=== PATIENT | male | born 1980 | race Caucasian/White ===

== ENCOUNTER 2017-03-04 16:49 | Inpatient (IN) | payer SELFPAY ==
[2017-03-04] MEDS ORDERED: ACETAMINOPHEN 325 MG TABLET PO ONE (17:11)
[2017-03-04] MEDS ORDERED: NORMAL SALINE 1000 ML 2,100 ML IV ONE (17:11)
[2017-03-04] MEDS ORDERED: VANCOMYCIN HCL INJ 1000 MG VIAL IV ONE (17:14)
[2017-03-04] MEDS ORDERED: PIPERACILLIN/TAZOBACTAM 3.375 GM VIAL IV ONE (17:15)
--- NOTE | 2017-03-04 17:18 | ER Document Report ---
ED Medical Screen (RME) - General Chief Complaint: Arm Problem Stated Complaint: RIGHT ARM PAIN, SWELLING, FEVER Time Seen by Provider: 03/04/17 17:11 Mode of Arrival: Ambulatory Information source: Patient Notes: 36-year-old male presents to ED for complaint of red swollen hot right arm. He states she has been clean for about a month and 3 days ago he shot up heroin. He has a red swollen hot area 8 cm above 12 cm below the elbow almost completely circumferential. He states that a couple hours after he shot up his arm was sore. The next day he had increased pain yesterday his pain was much worse and he started with swelling and redness. He states he took ibuprofen this morning he states he was less swelling but as the day has progressed the swelling has gotten much worse the redness has gotten much worse as well as the pain. His pulse is 138 with a temp of 100.2 after drinking water. The female visited with him states that his pulse was 140 last [address] Consult[address] to Dr. Kelly and he agreed that the patient needs a septic workup as well as IV vancomycin and Zosyn. I have greeted and performed a rapid initial assessment of this patient. A comprehensive ED assessment and evaluation of the patient, analysis of test results and completion of medical decision making process will be conducted by an additional ED providers. TRAVEL OUTSIDE OF THE [place] IN LAST 30 DAYS: No - Related Data Allergies/Adverse Reactions: No Known Allergies Allergy (Verified 03/04/17 16:55) Past Medical History - Social History Drug Abuse: Heroin Renal/ Medical History: Denies: Hx Peritoneal Dialysis Physical Exam - Vital signs Vitals: Temp Pulse Resp BP Pulse Ox 100.0 F 132 H 18 139/82 H 99 03/04/17 16:55 03/04/17 16:55 03/04/17 16:55 03/04/17 16:55 03/04/17 16:55 Course - Vital Signs Vital signs: Temp Pulse Resp BP Pulse Ox 100.0 F 132 H 18 139/82 H 99 03/04/17 16:55 03/04/17 16:55 03/04/17 16:55 03/04/17 16:55 03/04/17 16:55
--- NOTE | 2017-03-04 17:51 | ER Document Report ---
ED Extremity Problem, Upper - General Chief Complaint: Arm Problem Stated Complaint: RIGHT ARM PAIN, SWELLING, FEVER Time Seen by Provider: 03/04/17 17:11 Mode of Arrival: Ambulatory Notes: This is a 36-year-old male. History of IV drug abuse. Shooting in his right arm. Now right arm is red and infected. Patient has a fever. Heart is racing. Feels horrible. NO Known history of HIV or hepatitis. TRAVEL OUTSIDE OF THE [place] IN LAST 30 DAYS: No - HPI Patient complains to provider of: Pain, Swelling, Right, Forearm Onset: Yesterday Where: Home Quality of pain: Burning, Fullness, Throbbing Severity of pain: Moderate Pain Level: 2 Context: Other - Heroin abuse Associated symptoms: Chills, Fever Exacerbated by: Movement Relieved by: Positioning - Related Data Allergies/Adverse Reactions: No Known Allergies Allergy (Verified 03/04/17 16:55) Past Medical History - General Information source: Patient - Social History Smoking Status: Current Every Day Smoker Drug Abuse: Heroin Family History: Reviewed & Not Pertinent Patient has suicidal ideation: No Patient has homicidal ideation: No Renal/ Medical History: Denies: Hx Peritoneal Dialysis Review of Systems - Review of Systems Constitutional: No symptoms reported, Chills, Fever EENT: No symptoms reported Cardiovascular: No symptoms reported, Heart racing Respiratory: No symptoms reported Gastrointestinal: No symptoms reported Genitourinary: No symptoms reported Male Genitourinary: No symptoms reported Musculoskeletal: No symptoms reported, See HPI Skin: No symptoms reported Hematologic/Lymphatic: No symptoms reported, See HPI Neurological/Psychological: No symptoms reported Physical Exam - Vital signs Vitals: Temp Pulse Resp BP Pulse Ox 100.0 F 132 H 18 139/82 H 99 03/04/17 16:55 03/04/17 16:55 03/04/17 16:55 03/04/17 16:55 03/04/17 16:55 Interpretation: Normal - General General appearance: Appears well, Alert - HEENT Head: Normocephalic, Atraumatic Eyes: Normal Pupils: PERRL - Respiratory Respiratory status: No respiratory distress Chest status: Nontender Breath sounds: Normal Chest palpation: Normal - Cardiovascular Rhythm: Tachycardia Heart sounds: Normal auscultation Murmur: No - Abdominal Inspection: Normal Distension: No distension Bowel sounds: Normal Tenderness: Nontender Organomegaly: No organomegaly - Back Back: Normal, Nontender - Extremities General upper extremity: Other - The right upper extremity demonstrates large amount of erythema and swelling with cellulitis present around needle perkins on the forearm on the right. Cellulitic streaking General lower extremity: Normal inspection, Nontender, Normal color, Normal ROM , Normal temperature, Normal weight bearing. No: Mninie's sign - Neurological Neuro grossly intact: Yes Cognition: Normal Orientation: AAOx4 [place] Coma Scale Eye Opening: Spontaneous [place] Coma Scale Verbal: Oriented [place] Coma Scale Motor: Obeys Commands [place] Coma Scale Total: 15 Speech: Normal Motor strength normal: LUE, RUE, LLE, RLE Sensory: Normal - Psychological Associated symptoms: Normal affect, Normal mood - Skin Skin Temperature: Warm Skin Moisture: Dry Skin Color: Normal Course - Re-evaluation Re-evalutation: 03/04/17 18:46 he is tachycardic, has obvious cellulitis. IV drug abuser so high risk for infection. Started on Vanco and Zosyn. IV fluids. Patient will need to be admitted. 03/04/17 19:08 Consulted with hospitalist, Dr. Reddy will admit at this time. He requests ultrasound of the extremity to rule out DVT and abscess. The studies have been ordered. Dr. Reddy to follow-up on the results as an inpatient. - Vital Signs Vital signs: Temp Pulse Resp BP Pulse Ox 100.0 F 132 H 18 139/82 H 99 03/04/17 16:55 03/04/17 16:55 03/04/17 16:55 03/04/17 16:55 03/04/17 16:55 - Laboratory Result Diagrams: 03/04/17 18:14 03/04/17 18:14 Laboratory results interpreted by me: 03/04/17 03/04/17 03/04/17 18:14 18:14 18:14 WBC 15.5 H RDW 14.4 H Plt Count 102 L Seg Neutrophils % 82.9 H Lymphocytes % 8.3 L Absolute Neutrophils 12.9 H VBG pH 7.48 H VBG pCO2 31.0 L Sodium 136.9 L Potassium 3.4 L Carbon Dioxide 20 L Glucose 112 H Direct Bilirubin 0.5 H - EKG Interpretation by Me EKG shows normal: [place], Intervals, QRS Complexes, ST-T Waves Rate: Tachycardia Discharge - Discharge Clinical Impression: Cellulitis of upper extremity Qualifiers: Laterality: right Qualified Code(s): L03.113 - Cellulitis of right upper limb Disposition: ADMITTED INPATIENT Admitting Provider: Hospitalist Unit Admitted: Medical Floor - Dr. Reddy
--- NOTE | 2017-03-04 17:56 | RADIOLOGY REPORT (SQ) ---
EXAM DESCRIPTION: CHEST PA/LAT COMPLETED DATE/TIME: 03/04/2017 5:48 pm REASON FOR STUDY: sepsis COMPARISON: None. EXAM PARAMETERS: NUMBER OF VIEWS: two views TECHNIQUE: Digital Frontal and Lateral radiographic views of the chest acquired. RADIATION DOSE: NA LIMITATIONS: none FINDINGS: LUNGS AND PLEURA: No opacities, masses or pneumothorax. No pleural effusion. MEDIASTINUM AND HILAR STRUCTURES: No masses or contour abnormalities. HEART AND VASCULAR STRUCTURES: Heart normal size. No evidence for failure. BONES: No acute findings. HARDWARE: None in the chest. OTHER: No other significant finding. IMPRESSION: NO SIGNIFICANT RADIOGRAPHIC FINDING IN THE CHEST. TECHNICAL DOCUMENTATION: JOB ID: [id number] [employer]- All Rights Reserved
[2017-03-04 18:41] LABS: VENOUS BLOOD BASE EXCESS -0.2 mmol/L; VENOUS BLOOD HCO3 22.4 mmol/L (20-32); VENOUS BLOOD PH 7.48 (7.30-7.42)
[2017-03-04 18:44] LABS: PROTHROMBIN TIME 13.6 SEC (11.4-15.4)
[2017-03-04 18:46] LABS: ABSOLUTE LYMPHOCYTES (AUTO) 1.3 10^3/uL (0.5-4.7); ABSOLUTE MONOCYTES (AUTO) 1.3 10^3/uL (0.1-1.4); ABSOLUTE NEUT (AUTO) 12.9 10^3/uL (1.7-8.2); BASOPHILS % (AUTO) 0.1 % (0-2); EOSINOPHILS % (AUTO) 0.1 % (0-6); HEMATOCRIT 38.6 % (37.9-51.0); HEMOGLOBIN 13.7 g/dL (13.5-17.0); HGB HCT DIFFERENCE 2.5; LYMPHOCYTES % (AUTO) 8.3 % (13-45); MEAN CORPUSCULAR HEMOGLOBIN 30.6 pg (27.0-33.4); MEAN CORPUSCULAR HGB CONC 35.5 g/dL (32.0-36.0); MEAN CORPUSCULAR VOLUME 86 fl (80-97); MONOCYTES % (AUTO) 8.6 % (3-13); RED BLOOD COUNT 4.47 10^6/uL (4.35-5.55); RED CELL DISTRIBUTION WIDTH 14.4 % (11.5-14.0); SEGMENTED NEUTROPHILS % (AUTO) 82.9 % (42-78); WHITE BLOOD COUNT 15.5 10^3/uL (4.0-10.5)
[2017-03-04 18:59] LABS: ALANINE AMINOTRANSFERASE 69 U/L (21-72); ALBUMIN 4.1 g/dL (3.5-5.0); ALKALINE PHOSPHATASE 87 U/L (38-126); ANION GAP 14 (5-19); ASPARTATE AMINO TRANSFERASE 45 U/L (17-59); BILIRUBIN,DIRECT 0.5 mg/dL (0.0-0.4); BLOOD UREA NITROGEN 12 mg/dL (7-20); CALCIUM 9.3 mg/dL (8.4-10.2); CARBON DIOXIDE 20 mmol/L (22-30); CHLORIDE 103 mmol/L (98-107); CREATININE RESULT 0.78 mg/dL (0.52-1.25); GLUCOSE 112 mg/dL (75-110); POTASSIUM 3.4 mmol/L (3.6-5.0); SODIUM 136.9 mmol/L (137-145); TOTAL PROTEIN 7.3 g/dL (6.3-8.2)
--- NOTE | 2017-03-04 19:43 | EKG REPORT ---
SEVERITY:- OTHERWISE NORMAL ECG - SINUS TACHYCARDIA ST ELEV, PROBABLE NORMAL EARLY REPOL PATTERN : Confirmed by: Jared Burger MD 04-Mar-2017 19:42:25
[2017-03-04] MEDS ORDERED: CALCIUM CARBONATE 500 MG TAB.CHEW PO PRN (19:45)
[2017-03-04] MEDS ORDERED: IPRATROPIUM/ALBUTEROL 0.5-2.5 MG/3 ML AMPUL NEB PRN (19:46)
[2017-03-04] MEDS ORDERED: MAG HYDROX/AL HYDROX/SIMETH SUSP 30 ML UDCUP PO PRN (19:46)
[2017-03-04] MEDS ORDERED: VANCOMYCIN HCL 0 MG in DEXTROSE 5%-WATER 250 ML IV NR (20:00)
--- NOTE | 2017-03-04 20:54 | RADIOLOGY REPORT (SQ) ---
EXAM DESCRIPTION: VENOUS UNILATERAL UPPER COMPLETED DATE/TIME: 03/04/2017 8:39 pm REASON FOR STUDY: Swelling right upper extremity COMPARISON: None. TECHNIQUE: Dynamic and static mijares scale and color images acquired of the right arm venous system. S elected spectral images acquired with additional compression and augmentation maneuvers. The contrala teral subclavian vein and internal jugular vein were also imaged. Images stored on PACS. LIMITATIONS: None. FINDINGS: INTERNAL JUGULAR VEIN: Normal phasicity, compression, augmentation. No visualized echogeni c material on mijares scale. No defects on color images. Comparison opposite side normal. SUBCLAVIAN VEIN: Normal compression, augmentation. No visualized echogenic material on mijares scale. No defects on color images. AXILLARY VEIN: Normal compression, augmentation. No visualized echogenic material on mijares scale. No d efects on color images. BRACHIAL VEIN: Normal compression, augmentation. No visualized echogenic material on mijares scale. No d efects on color images. BASILIC VEIN: Normal compression, augmentation. No visualized echogenic material on mijares scale. No de fects on color images. CEPHALIC VEIN: Normal compression, augmentation. No visualized echogenic material on mijares scale. No d efects on color images. OTHER: No other significant finding. CONTRALATERAL SUBCLAVIAN VEIN AND INTERNAL JUGULAR VEIN: Normal phasicity, compression and augmentation. No visualized echogenic material on mijares scale. No de fects on color images. IMPRESSION: NO EVIDENCE DVT OR SVT IN THE RIGHT ARM. TECHNICAL DOCUMENTATION: JOB ID: [id number] [employer]- All Rights Reserved
--- NOTE | 2017-03-04 21:32 | RADIOLOGY REPORT (SQ) ---
EXAM DESCRIPTION: U/S EXTREMITY NONVASCULAR LTD COMPLETED DATE/TIME: 03/04/2017 9:10 pm REASON FOR STUDY: Possible abscess right upper extremity COMPARISON: None. TECHNIQUE: Dynamic and static grayscale images acquired of the localized site of clinical concern an d recorded on PACS. Additional selected color Doppler and spectral images recorded. SITE OF CONCERN: Right medial forearm LIMITATIONS: None. FINDINGS: SKIN AND SUBCUTANEOUS TISSUES: No masses. No fluid collections. Soft tissue edema is iden tified. No foreign bodies. DEEP SOFT TISSUES/MUSCLES: No masses. No fluid collections. No edema. VASCULAR: No increased or decreased vascularity. No occlusions. OTHER: No other significant finding. IMPRESSION: Soft tissue edema is identified without a discrete mass or fluid collection being identi fied. TECHNICAL DOCUMENTATION: JOB ID: [id number] [employer]- All Rights Reserved
[2017-03-04] MEDS: HEPARIN SOD (PORCINE) 5,000 UNIT/ML 1 ML SYRINGE SUBCUT SCH (22:40)
[2017-03-04] MEDS: NORMAL SALINE 1000 ML 1,000 ML IV SCH (22:45)
[2017-03-04] MEDS: ACETAMINOPHEN 325 MG TABLET PO PRN (22:45)
[2017-03-05] MEDS: PIPERACILLIN SODIUM/TAZOBACTAM 4.5 GM in NORMAL SALINE 100 ML IV SCH ×4 (00:40→17:03)
[2017-03-05] MEDS: KETOROLAC TROMETHAMINE INJ/PF 30 MG/1 ML SDV IV PRN ×3 (01:25→22:14)
[2017-03-05] MEDS: VANCOMYCIN HCL 1,000 MG in DEXTROSE 5%-WATER 250 ML IV SCH ×3 (01:25→17:45)
[2017-03-05] MEDS: ACETAMINOPHEN 325 MG TABLET PO PRN ×3 (03:57→20:10)
[2017-03-05] MEDS: NORMAL SALINE 1000 ML 1,000 ML IV SCH (03:59)
[2017-03-05] MEDS ORDERED: POTASSIUM CHLORIDE 10 MEQ TABLET.SA PO ONE (04:54)
--- NOTE | 2017-03-05 05:09 | PDOC H&P ---
History of Present Illness Admission Date/PCP: 03/04/17 19:46 Patient complains of: Right forearm pain History of Present Illness: LORIN MURPHY is a 36 year old male with past medical history of intermittent IV drug use and tobacco who had been in his usual state of health until approximately 3 days ago stating he missed a vein while attempting to inject heroin resulting in pain and swelling to his right forearm. He has also developed circumferential erythema, myalgias and fever prompting him to seek evaluation emergency room where he is found to have sepsis. He started on IV vancomycin, Zosyn and referred to the hospitalist for admission. Patient admits previous episode in the left arm which resulted in an non-MRSA abscess requiring debridement and hospitalization in 2012. Past Medical History Cardiac Medical History: Reports: None Pulmonary Medical History: Reports: Bronchitis EENT Medical History: Reports: None Neurological Medical History: Reports: None Endocrine Medical History: Reports: None Renal/ Medical History: Reports: None Malignancy Medical History: Reports: None GI Medical History: Reports: None Musculoskeltal Medical History: Reports: None Skin Medical History: Reports: None Psychiatric Medical History: Reports: Substance Abuse, Tobacco Dependency Denies: Depression Traumatic Medical History: Reports: None Hematology: Reports: None Infectious Medical History: Reports: None Past Surgical History Past Surgical History: Reports: None Social History Information Source: Patient Lives with: Spouse/Significant other Smoking Status: Current Every Day Smoker Cigarettes Packs Per Day: 1 Number of Years Smokin Last Time Smoked: today Frequency of Alcohol Use: Social Last Alcohol Use: 03/04/17 - Denies DTs Hx Recreational Drug Use: Yes Drugs: Heroin Hx Prescription Drug Abuse: No - Advance Directive Resuscitation Status: Full Code Family History Family History: COPD Parental Family History Reviewed: Yes Children Family History Reviewed: Yes Sibling(s) Family History Reviewed.: Yes Medication/Allergy Home Medications: No Home Medications 03/04/17 Allergies/Adverse Reactions: No Known Allergies Allergy (Verified 03/04/17 16:55) Review of Systems Constitutional: ABSENT: chills, fever(s), headache(s), weight gain, weight loss Eyes: ABSENT: visual disturbances Ears: ABSENT: hearing changes Cardiovascular: ABSENT: chest pain, dyspnea on exertion, edema, orthropnea, palpitations Respiratory: ABSENT: cough, hemoptysis Gastrointestinal: ABSENT: abdominal pain, constipation, diarrhea, hematemesis, hematochezia, nausea, vomiting Genitourinary: ABSENT: dysuria, hematuria Musculoskeletal: ABSENT: joint swelling Integumentary: ABSENT: rash, wounds Neurological: ABSENT: abnormal gait, abnormal speech, confusion, dizziness, focal weakness, syncope Psychiatric: ABSENT: anxiety, depression, homidical ideation, suicidal ideation Endocrine: ABSENT: cold intolerance, heat intolerance, polydipsia, polyuria Hematologic/Lymphatic: ABSENT: easy bleeding, easy bruising Physical Exam Vital Signs: Temp Pulse Resp BP Pulse Ox 98.3 F 84 20 120/60 100 03/05/17 02:35 03/05/17 02:35 03/05/17 02:35 03/05/17 02:35 03/05/17 02:35 Intake & Output 03/03/17 03/04/17 03/05/17 11:59 11:59 11:59 Output Total 1000 Balance -1000 Weight 77.6 kg General appearance: PRESENT: mild distress Head exam: PRESENT: atraumatic, normocephalic Eye exam: PRESENT: conjunctiva pink, EOMI, PERRLA. ABSENT: scleral icterus Ear exam: PRESENT: normal external ear exam Mouth exam: PRESENT: moist, tongue midline Neck exam: ABSENT: carotid bruit, JVD, lymphadenopathy, thyromegaly Respiratory exam: PRESENT: prolonged expiratory phas, symmetrical. ABSENT: accessory muscle use, rales, rhonchi, wheezes Cardiovascular exam: PRESENT: RRR, systolic murmur, tachycardia, other - Known murmur. ABSENT: diastolic murmur, rubs Pulses: PRESENT: normal dorsalis pedis pul Vascular exam: PRESENT: normal capillary refill GI/Abdominal exam: PRESENT: normal bowel sounds, soft. ABSENT: distended, guarding, mass, organolmegaly, rebound, tenderness Rectal exam: PRESENT: deferred Extremities exam: PRESENT: full ROM. ABSENT: calf tenderness, clubbing, pedal edema Neurological exam: PRESENT: alert, awake, oriented to person, oriented to place , oriented to time, oriented to situation, CN II-XII grossly intact. ABSENT: motor sensory deficit Psychiatric exam: PRESENT: appropriate affect, normal mood. ABSENT: homicidal ideation, suicidal ideation Skin exam: PRESENT: dry, erythema, intact, warm. ABSENT: cyanosis, rash Adult Front & Back Image: 1 - +2 edema, circumferential erythema no open ulcer or abscess Results Laboratory Results: 03/04/17 22:14 Lactic Acid 1.1 Impressions: Chest X-Ray 03/04/17 17:12 IMPRESSION: NO SIGNIFICANT RADIOGRAPHIC FINDING IN THE CHEST. Extremity Ultrasound 03/04/17 19:05 IMPRESSION: Soft tissue edema is identified without a discrete mass or fluid collection being identified. Venous Doppler Study 03/04/17 19:06 IMPRESSION: NO EVIDENCE DVT OR SVT IN THE RIGHT ARM. Assessment & Plan - Diagnosis (1) Sepsis Is this a current diagnosis for this admission?: Yes Plan: Secondary to severe cellulitis of right forearm, IV fluid challenge, empiric antibiotics follow-up CBC and chemistry (2) Cellulitis of upper extremity Qualifiers: Laterality: right Qualified Code(s): L03.113 - Cellulitis of right upper limb Is this a current diagnosis for this admission?: Yes Plan: Admission to medical floor, evaluate for abscess concern for MRSA, continue IV vancomycin and Zosyn follow-up CBC and blood culture. (3) IV drug user Is this a current diagnosis for this admission?: Yes Plan: Episodic use, not anticipating opiate withdrawal, limit narcotics, echocardiogram and endocarditis eval if blood culture remains positive. (4) Tobacco dependence Is this a current diagnosis for this admission?: Yes Plan: Tobacco Dependence patient received tobacco cessation counseling and offered nicotine replacement options - Time Time Spent: 30 to 50 Minutes - Inpatient Certification Medical Necessity: Need for Nebulizer Therapy and Monitoring of Response
[2017-03-05 05:13] LABS: ANION GAP 8 (5-19); BLOOD UREA NITROGEN 14 mg/dL (7-20); CALCIUM 8.4 mg/dL (8.4-10.2); CARBON DIOXIDE 23 mmol/L (22-30); CHLORIDE 110 mmol/L (98-107); CREATININE RESULT 0.68 mg/dL (0.52-1.25); GLUCOSE 96 mg/dL (75-110); POTASSIUM 3.5 mmol/L (3.6-5.0); SODIUM 141.1 mmol/L (137-145)
[2017-03-05] MEDS: HEPARIN SOD (PORCINE) 5,000 UNIT/ML 1 ML SYRINGE SUBCUT SCH (06:50)
[2017-03-05 07:02] LABS: APPEARANCE,URINE CLEAR; BILIRUBIN,URINE NEGATIVE (NEGATIVE); GLUCOSE, URINE NEGATIVE (NEGATIVE); KETONES,URINE NEGATIVE (NEGATIVE); LEUKOCYTE ESTERASE,URINE NEGATIVE (NEGATIVE); NITRITE,URINE NEGATIVE (NEGATIVE); PROTEIN,URINE 30 mg/dL (NEGATIVE); URINE SPECIFIC GRAVITY 1.033
[2017-03-05 07:10] LABS: ABSOLUTE LYMPHOCYTES (AUTO) 0.6 10^3/uL (0.5-4.7); ABSOLUTE MONOCYTES (AUTO) 0.8 10^3/uL (0.1-1.4); BASOPHILS % (AUTO) 0.2 % (0-2); EOSINOPHILS % (AUTO) 0.4 % (0-6); HEMATOCRIT 33.6 % (37.9-51.0); HEMOGLOBIN 11.7 g/dL (13.5-17.0); HGB HCT DIFFERENCE 1.5; LYMPHOCYTES % (AUTO) 7.8 % (13-45); MEAN CORPUSCULAR HEMOGLOBIN 30.4 pg (27.0-33.4); MEAN CORPUSCULAR HGB CONC 34.7 g/dL (32.0-36.0); MEAN CORPUSCULAR VOLUME 88 fl (80-97); MONOCYTES % (AUTO) 11.1 % (3-13); RED BLOOD COUNT 3.84 10^6/uL (4.35-5.55); RED CELL DISTRIBUTION WIDTH 14.3 % (11.5-14.0); SEGMENTED NEUTROPHILS % (AUTO) 80.5 % (42-78); WHITE BLOOD COUNT 7.5 10^3/uL (4.0-10.5)
[2017-03-05] MEDS: NICOTINE 21 MG/24 HR PATCH.TD24 TD SCH (09:07)
[2017-03-05] MEDS: DOCUSATE SODIUM 100 MG CAPSULE PO SCH ×2 (09:08→17:14)
[2017-03-05] MEDS ORDERED: DOCUSATE SODIUM 100 MG/10 ML UDC PO SCH (10:00)
[2017-03-05] MEDS: LACTOBACILLUS ACIDOPHILUS 250 MG TAB PO SCH ×2 (10:04→17:46)
--- NOTE | 2017-03-05 10:11 | PDOC PROGRESS REPORT ---
Subjective Progress Note for:: 03/05/17 Subjective:: Patient is seen on morning rounds, he is resting comfortably in the recliner. He reports that his pain is well-controlled with Tylenol, Toradol, and elevation of his right upper extremity. He reports that the edema is unchanged , however, erythema has improved significantly. He reports a sensation of tightness to his elbow with extension, otherwise range of motion and sensation is intact distally. He reports that he was a frequent IV drug user until approximately 30 days ago when he stopped using illicit drugs. He reports that he was clean for a month and then decided to inject heroin again 3 days ago and subsequently developing cellulitis for which she has been admitted. He denies needle sharing, however, does ask for HIV and hepatitis C screening "just to be safe." He has no other questions or concerns today. Physical Exam Vital Signs: Temp Pulse Resp BP Pulse Ox 98.2 F 74 14 113/65 99 03/05/17 07:11 03/05/17 09:54 03/05/17 09:54 03/05/17 07:11 03/05/17 09:54 Intake & Output 03/04/17 03/05/17 03/06/17 06:59 06:59 06:59 Intake Total 1760 Output Total 1350 Balance 410 Weight 77.6 kg General appearance: PRESENT: no acute distress, well-developed, well-nourished Head exam: PRESENT: atraumatic, normocephalic Eye exam: PRESENT: conjunctiva pink, EOMI, PERRLA. ABSENT: scleral icterus Ear exam: PRESENT: normal external ear exam Mouth exam: PRESENT: moist, tongue midline Neck exam: ABSENT: carotid bruit, JVD, lymphadenopathy, thyromegaly Respiratory exam: PRESENT: clear to auscultation belle. ABSENT: rales, rhonchi, wheezes Cardiovascular exam: PRESENT: RRR. ABSENT: diastolic murmur, rubs, systolic murmur Pulses: PRESENT: normal dorsalis pedis pul Vascular exam: PRESENT: normal capillary refill GI/Abdominal exam: PRESENT: normal bowel sounds, soft. ABSENT: distended, guarding, mass, organolmegaly, rebound, tenderness Rectal exam: PRESENT: deferred Extremities exam: PRESENT: full ROM, joint swelling - Rt elbow, tenderness - Right elbow with extention. ABSENT: calf tenderness, clubbing, pedal edema Neurological exam: PRESENT: alert, awake, oriented to person, oriented to place , oriented to time, oriented to situation, CN II-XII grossly intact. ABSENT: motor sensory deficit Psychiatric exam: PRESENT: appropriate affect, normal mood. ABSENT: homicidal ideation, suicidal ideation Skin exam: PRESENT: dry, erythema - Improved, warm. ABSENT: cyanosis, intact - Multiple shallow lacerations to posterior right forearm, rash Results Laboratory Results: 03/05/17 06:50 03/05/17 03:55 03/04/17 03/05/17 03/05/17 22:14 03:55 03:55 WBC Cancelled RBC Cancelled Hgb Cancelled Hct Cancelled MCV Cancelled MCH Cancelled MCHC Cancelled RDW Cancelled Plt Count Cancelled Seg Neutrophils % Cancelled Lymphocytes % Cancelled Monocytes % Cancelled Eosinophils % Cancelled Basophils % Cancelled Absolute Neutrophils Cancelled Absolute Lymphocytes Cancelled Absolute Monocytes Cancelled Absolute Eosinophils Cancelled Absolute Basophils Cancelled Sodium 141.1 Potassium 3.5 L Chloride 110 H Carbon Dioxide 23 Anion Gap 8 BUN 14 Creatinine 0.68 Est GFR ( Amer) > 60 Est GFR (Non-Af Amer) > 60 Glucose 96 Lactic Acid 1.1 Calcium 8.4 Magnesium Urine Color Urine Appearance Urine pH Ur Specific Walsh Urine Protein Urine Glucose (UA) Urine Ketones Urine Blood Urine Nitrite Ur Leukocyte Esterase Urine WBC (Auto) Urine RBC (Auto) 03/05/17 03/05/17 03/05/17 03:55 06:35 06:50 WBC 7.5 RBC 3.84 L Hgb 11.7 L Hct 33.6 L MCV 88 MCH 30.4 MCHC 34.7 RDW 14.3 H Plt Count 52 L Seg Neutrophils % 80.5 H Lymphocytes % 7.8 L Monocytes % 11.1 Eosinophils % 0.4 Basophils % 0.2 Absolute Neutrophils 6.0 Absolute Lymphocytes 0.6 Absolute Monocytes 0.8 Absolute Eosinophils 0.0 Absolute Basophils 0.0 Sodium Potassium Chloride Carbon Dioxide Anion Gap BUN Creatinine Est GFR ( Amer) Est GFR (Non-Af Amer) Glucose Lactic Acid Calcium Magnesium 1.8 Urine Color YELLOW Urine Appearance CLEAR Urine pH 5.0 Ur Specific Walsh 1.033 Urine Protein 30 H Urine Glucose (UA) NEGATIVE Urine Ketones NEGATIVE Urine Blood NEGATIVE Urine Nitrite NEGATIVE Ur Leukocyte Esterase NEGATIVE Urine WBC (Auto) 1 Urine RBC (Auto) 6 Impressions: Chest X-Ray 03/04/17 17:12 IMPRESSION: NO SIGNIFICANT RADIOGRAPHIC FINDING IN THE CHEST. Extremity Ultrasound 03/04/17 19:05 IMPRESSION: Soft tissue edema is identified without a discrete mass or fluid collection being identified. Venous Doppler Study 03/04/17 19:06 IMPRESSION: NO EVIDENCE DVT OR SVT IN THE RIGHT ARM. Assessment & Plan - Diagnosis (1) Cellulitis of upper extremity Qualifiers: Laterality: right Qualified Code(s): L03.113 - Cellulitis of right upper limb Is this a current diagnosis for this admission?: Yes Plan: Secondary to IV drug use; will cover for MRSA with IV vancomycin and Zosyn. Doppler study negative for DVT/SVT and extremity ultrasound does not show evidence of a abscess. Blood cultures pending. 1- Vancomycin and Zosyn; will narrow as cultures result 2- Tylenol and Toradol prn pain 3- Keep extremity elevated (2) IV drug user Is this a current diagnosis for this admission?: Yes Plan: Episodic use with low probability for withdrawal. Will limit narcotic medications; is currently well controlled with Toradol and Tylenol. Per patient request we will screen for HIV and hepatitis C. Plan for echocardiogram to evaluate for endocarditis if blood cultures are positive. (3) Sepsis Qualifiers: Sepsis type: sepsis due to unspecified organism Qualified Code(s): A41.9 - Sepsis, unspecified organism Is this a current diagnosis for this admission?: Yes Plan: Secondary to cellulitis of the right forearm. Empiric antibiotics initiated. Leukocytosis has resolved. Patient was afebrile overnight and clinically has improved. (4) Tobacco dependence Is this a current diagnosis for this admission?: Yes Plan: Tobacco cessation discussed. Will provide nicotine replacement therapy. - Time Time Spent with patient: 25-34 minutes Smoking Cessation Education: 3 to 10 minutes Medications reviewed and adjusted accordingly: Yes - Inpatient Certification Based on my medical assessment, after consideration of the patient's comorbidities, presenting symptoms, or acuity I expect that the services needed warrant INPATIENT care.: Yes I certify that my determination is in accordance with my understanding of Medicare's requirements for reasonable and necessary INPATIENT services [42 CFR 412.3e].: Yes Medical Necessity: Need for IV Antibiotics
[2017-03-05 10:23] LABS: ADD HIVPANEL? NO
[2017-03-05 10:27] LABS: HIV (1 AND 2) ANTIBODY NEGATIVE (NEGATIVE)
[2017-03-05] MEDS ORDERED: LOPERAMIDE HCL 2 MG CAPSULE PO PRN (11:52)
[2017-03-05] MEDS: LORAZEPAM 1 MG TABLET PO PRN ×5 (12:23→22:16)
[2017-03-05] MEDS: OXYCODONE HCL IR 5 MG TABLET PO PRN ×2 (14:01→20:11)
[2017-03-06] MEDS: PIPERACILLIN SODIUM/TAZOBACTAM 4.5 GM in NORMAL SALINE 100 ML IV SCH ×4 (00:46→17:45)
[2017-03-06] MEDS: LORAZEPAM 1 MG TABLET PO PRN ×4 (00:51→08:02)
[2017-03-06] MEDS: VANCOMYCIN HCL 1,000 MG in DEXTROSE 5%-WATER 250 ML IV SCH ×2 (03:00→11:58)
[2017-03-06] MEDS: OXYCODONE HCL IR 5 MG TABLET PO PRN ×4 (03:00→22:00)
[2017-03-06] MEDS: ACETAMINOPHEN 325 MG TABLET PO PRN ×3 (03:34→21:57)
[2017-03-06] MEDS: KETOROLAC TROMETHAMINE INJ/PF 30 MG/1 ML SDV IV PRN ×3 (05:10→19:43)
[2017-03-06 07:01] LABS: HEMATOCRIT 32.1 % (37.9-51.0); HEMOGLOBIN 11.3 g/dL (13.5-17.0); HGB HCT DIFFERENCE 1.8; MEAN CORPUSCULAR HGB CONC 35.4 g/dL (32.0-36.0); MEAN CORPUSCULAR VOLUME 88 fl (80-97); RED BLOOD COUNT 3.66 10^6/uL (4.35-5.55); RED CELL DISTRIBUTION WIDTH 14.1 % (11.5-14.0); WHITE BLOOD COUNT 5.4 10^3/uL (4.0-10.5)
[2017-03-06 07:26] LABS: ANION GAP 9 (5-19); BLOOD UREA NITROGEN 5 mg/dL (7-20); CALCIUM 8.3 mg/dL (8.4-10.2); CARBON DIOXIDE 23 mmol/L (22-30); CHLORIDE 107 mmol/L (98-107); GLUCOSE 105 mg/dL (75-110); POTASSIUM 3.2 mmol/L (3.6-5.0); SODIUM 138.6 mmol/L (137-145)
[2017-03-06] MEDS: NICOTINE 21 MG/24 HR PATCH.TD24 TD SCH (09:21)
[2017-03-06] MEDS: LACTOBACILLUS ACIDOPHILUS 250 MG TAB PO SCH ×2 (09:21→17:45)
[2017-03-06] MEDS: DOCUSATE SODIUM 100 MG CAPSULE PO SCH ×2 (09:26→17:49)
[2017-03-06] MEDS ORDERED: POTASSIUM CHLORIDE 10 MEQ TABLET.SA PO ONE (10:58)
--- NOTE | 2017-03-06 11:18 | PDOC PROGRESS REPORT ---
Subjective Progress Note for:: 03/06/17 Subjective:: Patient is seen on morning rounds, he is resting comfortably in the recliner with family present. Patient states that he has had generalized body aches and joint pain that are cyclical and occurring with fevers. He was noted to have a temperature as high as 103 last night. He reports continued right forearm and elbow edema, erythema, and tenderness especially with extension of the arm. He does request to increase the frequency of oxycodone to manage his pain. He reports that the elbow pain responds well to Tylenol and Toradol, however, the body aches are "agonizing." We did discuss his illicit drug use and EtOH habits. He reiterates that he used heroin approximately 3 days prior to arrival and prior to that had been IV drug free for greater than a month. He does admit to occasional oxycodone and Xanax use but states that the last time he took these medications were 2-3 weeks ago. He reports that he has been drinking 2-3 beers most nights of the week since stopping heroin. He denies having ever had alcohol dependence or withdrawal issues in the past. Long discussion was had with regard to managing body aches related to his infection versus possible withdrawal symptoms. Patient is appreciative of medication adjustments made today. He has no other questions or concerns. Physical Exam Vital Signs: Temp Pulse Resp BP Pulse Ox 98.8 F 78 19 105/61 100 03/06/17 08:02 03/06/17 07:01 03/06/17 07:01 03/06/17 07:01 03/06/17 07:01 Intake & Output 03/05/17 03/06/17 03/07/17 06:59 06:59 06:59 Intake Total 1760 3048 Output Total 1350 1100 Balance 410 1948 Weight 77.6 kg 78.7 kg General appearance: PRESENT: no acute distress, well-developed, well-nourished Head exam: PRESENT: atraumatic, normocephalic Eye exam: PRESENT: conjunctiva pink, EOMI, PERRLA. ABSENT: scleral icterus Ear exam: PRESENT: normal external ear exam Mouth exam: PRESENT: moist, tongue midline Neck exam: ABSENT: carotid bruit, JVD, lymphadenopathy, thyromegaly Respiratory exam: PRESENT: clear to auscultation belle. ABSENT: rales, rhonchi, wheezes Cardiovascular exam: PRESENT: RRR. ABSENT: diastolic murmur, rubs, systolic murmur Pulses: PRESENT: normal dorsalis pedis pul Vascular exam: PRESENT: normal capillary refill GI/Abdominal exam: PRESENT: normal bowel sounds, soft. ABSENT: distended, guarding, mass, organolmegaly, rebound, tenderness Rectal exam: PRESENT: deferred Extremities exam: PRESENT: full ROM, joint swelling - Rt elbor; slight improvement from yesterday, tenderness. ABSENT: calf tenderness, clubbing, pedal edema Neurological exam: PRESENT: alert, awake, oriented to person, oriented to place , oriented to time, oriented to situation, CN II-XII grossly intact. ABSENT: motor sensory deficit Psychiatric exam: PRESENT: appropriate affect, normal mood. ABSENT: homicidal ideation, suicidal ideation Skin exam: PRESENT: dry, erythema - Improved, warm. ABSENT: cyanosis, intact, rash Results Laboratory Results: 03/06/17 06:38 03/06/17 03/06/17 06:38 06:38 WBC 5.4 RBC 3.66 L Hgb 11.3 L Hct 32.1 L MCV 88 MCH 31.0 MCHC 35.4 RDW 14.1 H Plt Count 54 L Sodium 138.6 Potassium 3.2 L Chloride 107 Carbon Dioxide 23 Anion Gap 9 BUN 5 L Creatinine 0.70 Est GFR ( Amer) > 60 Est GFR (Non-Af Amer) > 60 Glucose 105 Calcium 8.3 L Impressions: Chest X-Ray 03/04/17 17:12 IMPRESSION: NO SIGNIFICANT RADIOGRAPHIC FINDING IN THE CHEST. Extremity Ultrasound 03/04/17 19:05 IMPRESSION: Soft tissue edema is identified without a discrete mass or fluid collection being identified. Venous Doppler Study 03/04/17 19:06 IMPRESSION: NO EVIDENCE DVT OR SVT IN THE RIGHT ARM. Assessment & Plan - Diagnosis (1) Cellulitis of upper extremity Qualifiers: Laterality: right Qualified Code(s): L03.113 - Cellulitis of right upper limb Is this a current diagnosis for this admission?: Yes Plan: Secondary to IV drug use; will cover for MRSA with IV vancomycin and Zosyn. Doppler study negative for DVT/SVT and extremity ultrasound does not show evidence of a abscess. Blood cultures: No growth at 24 hours. Appearance of cellulitis is improving, however patient was febrile overnight. T -max 103 and associated with diaphoresis, headache, generalized body aches. Therefore patient will need to remain on IV antibiotics as culture results are still pending. Will monitor fever curve. 1- Vancomycin and Zosyn; will narrow as cultures result 2- Tylenol and Toradol prn pain 3- Keep extremity elevated 4- Oxycodone 5mg q 6 hours prn (2) IV drug user Is this a current diagnosis for this admission?: Yes Plan: Episodic use with low probability for withdrawal. Will limit narcotic medications; is currently well controlled with Toradol and Tylenol. Per patient request we will screen for HIV and hepatitis C; results pending. Plan for echocardiogram to evaluate for endocarditis if blood cultures are positive. (3) Sepsis Qualifiers: Sepsis type: sepsis due to unspecified organism Qualified Code(s): A41.9 - Sepsis, unspecified organism Is this a current diagnosis for this admission?: Yes Plan: Secondary to cellulitis of the right forearm. Empiric antibiotics initiated. Leukocytosis has resolved. As above. (4) Withdrawal complaint Is this a current diagnosis for this admission?: Yes Plan: Patient with IV heroin use, intermittent oxycodone and Xanax use, and daily EtOH. He is now complaining of diarrhea, generalized body aches, diaphoresis, and anxiety; some of which may be related to his cellulitis/sepsis. We will continue to treat cellulitis as above and additionally treat for withdrawal. 1- Valium 5mg q6 hours scheduled 2- prn Ativan for withdrawal symptoms (5) Hypokalemia Is this a current diagnosis for this admission?: Yes Plan: Patient with multiple episodes of diarrhea yesterday; now resolved. Will replace and monitor. (6) Tobacco dependence Is this a current diagnosis for this admission?: Yes Plan: Tobacco cessation discussed. Will provide nicotine replacement therapy. - Time Time Spent with patient: 35 or more minutes Smoking Cessation Education: 3 to 10 minutes Medications reviewed and adjusted accordingly: Yes Anticipated discharge: Home - Inpatient Certification Based on my medical assessment, after consideration of the patient's comorbidities, presenting symptoms, or acuity I expect that the services needed warrant INPATIENT care.: Yes I certify that my determination is in accordance with my understanding of Medicare's requirements for reasonable and necessary INPATIENT services [42 CFR 412.3e].: Yes Medical Necessity: Need for IV Antibiotics
[2017-03-06 11:35] LABS: CREATININE RESULT 0.71 mg/dL (0.52-1.25)
[2017-03-06] MEDS: DIAZEPAM 5 MG TABLET PO SCH ×2 (11:58→17:45)
[2017-03-06 12:17] LABS: ADD HIVPANEL? NO; HIV (1 AND 2) ANTIBODY NEGATIVE (NEGATIVE)
[2017-03-06] MEDS ORDERED: CALCIUM CARBONATE 500 MG TAB.CHEW PO PRN (14:00)
[2017-03-06] MEDS ORDERED: LORAZEPAM 1 MG TABLET PO PRN (14:00)
[2017-03-06] MEDS ORDERED: MAG HYDROX/AL HYDROX/SIMETH SUSP 30 ML UDCUP PO PRN (14:00)
[2017-03-06] MEDS: LOPERAMIDE HCL 2 MG CAPSULE PO PRN (16:04)
[2017-03-06] MEDS: VANCOMYCIN HCL 1,500 MG in DEXTROSE 5%-WATER 250 ML IV SCH (17:48)
--- NOTE | 2017-03-06 19:43 | Physician Advisory Note ---
Physician Advisor ProgressNote .: Pursuant to the plan for [facility], I have reviewed the medical record for this patient. Physician Advisor Statement: Nice documentation of sepsis due to cellulitis. Please be sure to explicitly document the findings that support this dx in charts in general (see below). - Payers are now refusing to pay when the provider doesn't support dx with clinical criteria, particularly sepsis, pneumonia, acute CHF types, and acute respiratory failure. Discussion: Pt didn't show tremendous hypotension, but that may be because he received aggressive IVF resuscitation early on: 2L of IVF boluses in ED, & 2L more of IVF boluses immediately on admission. He had documented fevers (103 max), tachycardia (132), & thrombocytopenia (102, which worsened to <100 after the first day), and lactate level 2.1. Therefore he met both Sepsis-2 and Sepsis-3 criteria for the dx. He was promptly given IV abx, and lactate trended down. CK
[2017-03-07] MEDS: PIPERACILLIN SODIUM/TAZOBACTAM 4.5 GM in NORMAL SALINE 100 ML IV SCH ×4 (00:48→18:09)
[2017-03-07] MEDS: DIAZEPAM 5 MG TABLET PO SCH ×4 (01:08→18:09)
[2017-03-07] MEDS: VANCOMYCIN HCL 1,500 MG in DEXTROSE 5%-WATER 250 ML IV SCH ×3 (01:31→21:42)
[2017-03-07 05:40] LABS: HEPATITIS C VIRUS AB >11.0 s/co ratio (0.0-0.9)
[2017-03-07 06:43] LABS: ANION GAP 9 (5-19); BLOOD UREA NITROGEN 7 mg/dL (7-20); CALCIUM 8.4 mg/dL (8.4-10.2); CARBON DIOXIDE 23 mmol/L (22-30); CHLORIDE 107 mmol/L (98-107); CREATININE RESULT 0.75 mg/dL (0.52-1.25); GLUCOSE 102 mg/dL (75-110); POTASSIUM 3.7 mmol/L (3.6-5.0); SODIUM 139.3 mmol/L (137-145)
[2017-03-07 06:55] LABS: HEMOGLOBIN 11.4 g/dL (13.5-17.0); HGB HCT DIFFERENCE 1.2; MEAN CORPUSCULAR HEMOGLOBIN 30.5 pg (27.0-33.4); MEAN CORPUSCULAR HGB CONC 34.7 g/dL (32.0-36.0); MEAN CORPUSCULAR VOLUME 88 fl (80-97); RED BLOOD COUNT 3.75 10^6/uL (4.35-5.55); RED CELL DISTRIBUTION WIDTH 14.7 % (11.5-14.0); WHITE BLOOD COUNT 5.8 10^3/uL (4.0-10.5)
[2017-03-07] MEDS: OXYCODONE HCL IR 5 MG TABLET PO PRN ×3 (07:21→20:26)
[2017-03-07 08:55] LABS: ALANINE AMINOTRANSFERASE 51 U/L (21-72); ALBUMIN 2.9 g/dL (3.5-5.0); ALKALINE PHOSPHATASE 57 U/L (38-126); ASPARTATE AMINO TRANSFERASE 33 U/L (17-59); BILIRUBIN,DIRECT 0.4 mg/dL (0.0-0.4); BILIRUBIN,TOTAL 0.6 mg/dL (0.2-1.3); TOTAL PROTEIN 5.7 g/dL (6.3-8.2)
[2017-03-07] MEDS: NICOTINE 21 MG/24 HR PATCH.TD24 TD SCH (09:38)
[2017-03-07] MEDS: LACTOBACILLUS ACIDOPHILUS 250 MG TAB PO SCH ×2 (09:38→18:09)
[2017-03-07] MEDS: DOCUSATE SODIUM 100 MG CAPSULE PO SCH ×2 (09:45→17:34)
--- NOTE | 2017-03-07 12:32 | PDOC PROGRESS REPORT ---
Subjective Progress Note for:: 03/07/17 Subjective:: The patient is resting in his bed with his at the bedside. He states that he has developed some pain that is quite severe over his elbow and he feels as if there is some fluid in there as well. Overall the erythema has improved although it has moved outside the line on the upper part of his arm. He denies fever chills overnight. He states that overall his pain is adequately controlled but it does hurt. He has had no chest pain, shortness of breath or heart palpitations. No nausea, vomiting or abdominal pain. He states that he has had multiple episodes of watery diarrhea today. He denies dysuria, frequency or hematuria. Physical Exam Vital Signs: Temp Pulse Resp BP Pulse Ox 100.6 F H 96 20 140/72 H 100 03/07/17 07:39 03/07/17 07:39 03/07/17 07:39 03/07/17 07:39 03/07/17 07:39 Intake & Output 03/06/17 03/07/17 03/08/17 06:59 06:59 06:59 Intake Total 3048 4651 Output Total 1100 1100 Balance 1948 3551 Weight 78.7 kg 78.7 kg General appearance: PRESENT: no acute distress, well-developed, well-nourished Head exam: PRESENT: atraumatic, normocephalic Eye exam: PRESENT: conjunctiva pink, EOMI, PERRLA. ABSENT: scleral icterus Mouth exam: PRESENT: moist, tongue midline Neck exam: ABSENT: carotid bruit, JVD, lymphadenopathy, thyromegaly Respiratory exam: PRESENT: clear to auscultation belle. ABSENT: rales, rhonchi, wheezes Cardiovascular exam: PRESENT: RRR. ABSENT: diastolic murmur, rubs, systolic murmur Vascular exam: PRESENT: normal capillary refill GI/Abdominal exam: PRESENT: normal bowel sounds, soft. ABSENT: distended, guarding, mass, organolmegaly, rebound, tenderness Rectal exam: PRESENT: deferred Extremities exam: PRESENT: joint swelling - The patient has some joint swelling in the elbow. He also has significant erythema in the right. It appears to not be as angry per the pictures the is showing me. It has moved outside of the lines where it was marked at the time of admission however.. ABSENT: calf tenderness, clubbing Musculoskeletal exam: PRESENT: ambulatory Neurological exam: PRESENT: alert, awake, oriented to person, oriented to place , oriented to time, oriented to situation, CN II-XII grossly intact. ABSENT: motor sensory deficit Psychiatric exam: PRESENT: appropriate affect, normal mood. ABSENT: homicidal ideation, suicidal ideation Skin exam: PRESENT: erythema - The patient has some mild tissue swelling. The erythema has moved outside of the lines on the upper part of the arm from where it was marked at the time of admission., warm Results Laboratory Results: 03/07/17 06:06 03/07/17 06:06 03/07/17 03/07/17 03/07/17 06:06 06:06 06:06 WBC 5.8 RBC 3.75 L Hgb 11.4 L Hct 33.0 L MCV 88 MCH 30.5 MCHC 34.7 RDW 14.7 H Plt Count 65 L Sodium 139.3 Potassium 3.7 Chloride 107 Carbon Dioxide 23 Anion Gap 9 BUN 7 Creatinine 0.75 Est GFR ( Amer) > 60 Est GFR (Non-Af Amer) > 60 Glucose 102 Calcium 8.4 Total Bilirubin 0.6 AST 33 ALT 51 Alkaline Phosphatase 57 Total Protein 5.7 L Albumin 2.9 L 03/05/17 06:35 Clean Catch Midstream Urine Culture - Final NO GROWTH 2 DAYS Impressions: Chest X-Ray 03/04/17 17:12 IMPRESSION: NO SIGNIFICANT RADIOGRAPHIC FINDING IN THE CHEST. Extremity Ultrasound 03/04/17 19:05 IMPRESSION: Soft tissue edema is identified without a discrete mass or fluid collection being identified. Venous Doppler Study 03/04/17 19:06 IMPRESSION: NO EVIDENCE DVT OR SVT IN THE RIGHT ARM. Assessment & Plan - Diagnosis (1) Sepsis Qualifiers: Sepsis type: sepsis due to unspecified organism Qualified Code(s): A41.9 - Sepsis, unspecified organism Is this a current diagnosis for this admission?: Yes Plan: Present on admission manifested by high fever of 102.7, tachycardia, elevated lactic acid level, leukocytosis and thrombocytopenia. Patient sepsis symptoms are improving. His sepsis is secondary to his underlying cellulitis. (2) Cellulitis of upper extremity Qualifiers: Laterality: right Qualified Code(s): L03.113 - Cellulitis of right upper limb Is this a current diagnosis for this admission?: Yes Plan: Patient has developed some swelling over his elbow and the erythema has moved outside of the margins. I am going to get a CT scan of the right upper extremity with IV contrast today for further evaluation. We need to rule out underlying abscess or septic joint. (3) IV drug user Is this a current diagnosis for this admission?: Yes Plan: This is likely the source of his cellulitis. He states that he did not use on a fairly regular basis. He indicates that he is ready to stop. (4) Opiate withdrawal Plan: The patient had been using IV heroin as well as taking oxycodone periodically as an outpatient. Currently appears to be stable on current regimen. (5) Opiate dependence Plan: Patient states that he does not use heroin or use oxycodone on a regular basis however he was having evidence of withdrawal. (6) Hypokalemia Is this a current diagnosis for this admission?: Yes Plan: Repleted and resolved (7) Tobacco dependence Is this a current diagnosis for this admission?: Yes Plan: Currently has a nicotine patch in place and is doing quite well. (8) Anemia Plan: Patient had a precipitous drop in hemoglobin likely due to hemodilution as he received quite a bit of IV fluids at the time of admission. His hemoglobin is stable. - Time Time Spent with patient: 25-34 minutes - Inpatient Certification Medical Necessity: Need for IV Antibiotics - Inpatient hospitalization remains necessary. The patient still requiring parenteral antibiotics for severe cellulitis related to his IV drug use. The erythema has actually spread and he is still febrile this afternoon. Timing of disposition will be determined by his clinical course.
--- NOTE | 2017-03-07 14:17 | RADIOLOGY REPORT (SQ) ---
EXAM DESCRIPTION: CT RT UPPER EXTREMITY WITH COMPLETED DATE/TIME: 03/07/2017 1:09 pm REASON FOR STUDY: worsening swelling elbow. R/O septic joint or absc COMPARISON: None. TECHNIQUE: Axial imaging performed through the right elbow with reformatted oblique coronal and obli que sagittal imaging windowed for bone and soft tissues. Patient was injected with 75 ML of Isovue 370. Creatinine 0.[address] scanners at this facility use dose modulation, iterative reconstruction, and/or weight based d osing when appropriate to reduce radiation dose to as low as reasonably achievable (ALARA). [facility]: Dose Right [facility]: CareDose [facility]: Dose Right [facility]: Teradose 4D [facility]: Smart Heliospectra RADIATION DOSE: Up-to-date CT equipment and radiation dose reduction techniques were employed. CTDIv ol: 4.6 mGy. DLP: 131 mGy-cm. mGy. LIMITATIONS: None. FINDINGS: Normal contrast enhancement of the arteries and veins. No segmental thrombophlebitis is i dentified. No elbow joint effusion. No well-circumscribed soft tissue abscess. There is diffuse cellulitis along the dorsal aspect of th e upper arm and proximal forearm. No abnormal muscular enhancement worrisome for myositis or intramuscular abscess. No fracture. Normal alignment at the elbow joint. IMPRESSION: Persistent superficial cellulitis without well-circumscribed abscess. No elbow joint effusion. TECHNICAL DOCUMENTATION: JOB ID: [id number] Quality ID # [id number]: Final reports with documentation of one or more dose reduction techniques (e.g., Au tomated exposure control, adjustment of the mA and/or kV according to patient size, use of iterative reconstruction technique) 2010 [employer]- All Rights Reserved
[2017-03-07] MEDS: ACETAMINOPHEN 325 MG TABLET PO PRN (20:27)
[2017-03-08] MEDS: DIAZEPAM 5 MG TABLET PO SCH ×5 (00:33→23:59)
[2017-03-08] MEDS: PIPERACILLIN SODIUM/TAZOBACTAM 4.5 GM in NORMAL SALINE 100 ML IV SCH ×5 (00:33→23:59)
[2017-03-08] MEDS: OXYCODONE HCL IR 5 MG TABLET PO PRN ×4 (05:14→23:58)
[2017-03-08] MEDS: VANCOMYCIN HCL 1,500 MG in DEXTROSE 5%-WATER 250 ML IV SCH (05:15)
[2017-03-08 05:32] LABS: ABSOLUTE EOSINOPHILS # (AUTO) 0.1 10^3/uL (0.0-0.6); ABSOLUTE LYMPHOCYTES (AUTO) 0.7 10^3/uL (0.5-4.7); ABSOLUTE MONOCYTES (AUTO) 0.7 10^3/uL (0.1-1.4); ABSOLUTE NEUT (AUTO) 4.4 10^3/uL (1.7-8.2); BASOPHILS % (AUTO) 0.6 % (0-2); EOSINOPHILS % (AUTO) 1.1 % (0-6); HEMATOCRIT 32.6 % (37.9-51.0); HEMOGLOBIN 11.4 g/dL (13.5-17.0); HGB HCT DIFFERENCE 1.6; LYMPHOCYTES % (AUTO) 12.3 % (13-45); MEAN CORPUSCULAR HEMOGLOBIN 30.4 pg (27.0-33.4); MEAN CORPUSCULAR HGB CONC 34.8 g/dL (32.0-36.0); MEAN CORPUSCULAR VOLUME 87 fl (80-97); RED BLOOD COUNT 3.74 10^6/uL (4.35-5.55); RED CELL DISTRIBUTION WIDTH 14.2 % (11.5-14.0)
[2017-03-08 05:38] LABS: ANION GAP 9 (5-19); BLOOD UREA NITROGEN 7 mg/dL (7-20); CALCIUM 8.3 mg/dL (8.4-10.2); CARBON DIOXIDE 24 mmol/L (22-30); CHLORIDE 107 mmol/L (98-107); CREATININE RESULT 0.71 mg/dL (0.52-1.25); GLUCOSE 102 mg/dL (75-110); POTASSIUM 3.7 mmol/L (3.6-5.0); SODIUM 139.7 mmol/L (137-145)
[2017-03-08 08:45] LABS: HEMATOCRIT 31.4 % (37.9-51.0); HEMOGLOBIN 10.8 g/dL (13.5-17.0); MEAN CORPUSCULAR HEMOGLOBIN 30.3 pg (27.0-33.4); MEAN CORPUSCULAR HGB CONC 34.6 g/dL (32.0-36.0); MEAN CORPUSCULAR VOLUME 88 fl (80-97); RED BLOOD COUNT 3.58 10^6/uL (4.35-5.55); WHITE BLOOD COUNT 6.1 10^3/uL (4.0-10.5)
[2017-03-08] MEDS: LACTOBACILLUS ACIDOPHILUS 250 MG TAB PO SCH ×2 (10:34→17:36)
[2017-03-08] MEDS: KETOROLAC TROMETHAMINE INJ/PF 30 MG/1 ML SDV IV PRN ×2 (10:35→20:38)
[2017-03-08] MEDS: NICOTINE 21 MG/24 HR PATCH.TD24 TD SCH (10:36)
[2017-03-08] MEDS: DOCUSATE SODIUM 100 MG CAPSULE PO SCH ×2 (10:36→17:37)
--- NOTE | 2017-03-08 11:25 | PDOC PROGRESS REPORT ---
Subjective Progress Note for:: 03/08/17 Subjective:: The patient is resting in his bed with his at the bedside. He states his arm is still quite swollen and hurting at the elbow. He thinks it is a little improved since yesterday. He states he was still running a fever overnight and had some chills. He has had no chest pain, shortness of breath or heart palpitations. He is tolerating his diet and has had no nausea, vomiting or diarrhea. No dysuria, frequency or hematuria. Physical Exam Vital Signs: Temp Pulse Resp BP Pulse Ox 99.3 F 87 20 127/71 H 100 03/08/17 07:13 03/08/17 07:13 03/08/17 07:13 03/08/17 07:13 03/08/17 07:13 Intake & Output 03/07/17 03/08/17 03/09/17 06:59 06:59 06:59 Intake Total 4651 2786 Output Total 1100 400 Balance 3551 2386 Weight 78.7 kg General appearance: PRESENT: no acute distress, well-developed, well-nourished Head exam: PRESENT: atraumatic, normocephalic Mouth exam: PRESENT: moist, tongue midline Respiratory exam: PRESENT: clear to auscultation belle. ABSENT: rales, rhonchi, wheezes Cardiovascular exam: PRESENT: RRR. ABSENT: diastolic murmur, rubs, systolic murmur GI/Abdominal exam: PRESENT: normal bowel sounds, soft. ABSENT: distended, guarding, mass, organolmegaly, rebound, tenderness Musculoskeletal exam: PRESENT: ambulatory Neurological exam: PRESENT: alert, awake, oriented to person, oriented to place , oriented to time, oriented to situation, CN II-XII grossly intact. ABSENT: motor sensory deficit Psychiatric exam: PRESENT: appropriate affect, normal mood. ABSENT: homicidal ideation, suicidal ideation Skin exam: PRESENT: other - Right arm still has some erythema. It is not quite as angry looking as it was yesterday. Still swollen especially around the elbow. toll gate tender to palpation. Results Laboratory Results: 03/08/17 08:38 03/08/17 05:10 03/08/17 03/08/17 03/08/17 05:10 05:10 08:38 WBC 6.0 6.1 RBC 3.74 L 3.58 L Hgb 11.4 L 10.8 L Hct 32.6 L 31.4 L MCV 87 88 MCH 30.4 30.3 MCHC 34.8 34.6 RDW 14.2 H 14.0 Plt Count 79 L 86 L Seg Neutrophils % 74.0 Lymphocytes % 12.3 L Monocytes % 12.0 Eosinophils % 1.1 Basophils % 0.6 Absolute Neutrophils 4.4 Absolute Lymphocytes 0.7 Absolute Monocytes 0.7 Absolute Eosinophils 0.1 Absolute Basophils 0.0 Sodium 139.7 Potassium 3.7 Chloride 107 Carbon Dioxide 24 Anion Gap 9 BUN 7 Creatinine 0.71 Est GFR ( Amer) > 60 Est GFR (Non-Af Amer) > 60 Glucose 102 Calcium 8.3 L Magnesium 2.0 03/05/17 06:35 Clean Catch Midstream Urine Culture - Final NO GROWTH 2 DAYS Impressions: Chest X-Ray 03/04/17 17:12 IMPRESSION: NO SIGNIFICANT RADIOGRAPHIC FINDING IN THE CHEST. Extremity Ultrasound 03/04/17 19:05 IMPRESSION: Soft tissue edema is identified without a discrete mass or fluid collection being identified. Venous Doppler Study 03/04/17 19:06 IMPRESSION: NO EVIDENCE DVT OR SVT IN THE RIGHT ARM. Upper Extremity CT 03/07/17 00:00 IMPRESSION: Persistent superficial cellulitis without well-circumscribed abscess. No elbow joint effusion. Assessment & Plan - Diagnosis (1) Sepsis Qualifiers: Sepsis type: sepsis due to unspecified organism Qualified Code(s): A41.9 - Sepsis, unspecified organism Is this a current diagnosis for this admission?: Yes Plan: Present on admission manifested by high fever of 102.7, tachycardia, elevated lactic acid level, leukocytosis and thrombocytopenia. Patient sepsis symptoms are improving. His sepsis is secondary to his underlying cellulitis. (2) Cellulitis of upper extremity Qualifiers: Laterality: right Qualified Code(s): L03.113 - Cellulitis of right upper limb Is this a current diagnosis for this admission?: Yes Plan: He had a CT scan of his right upper extremity yesterday which fortunately revealed no evidence of septic joint or underlying abscess. We will continue current IV antibiotics with vancomycin and Zosyn. He is very slowly improving but is still running fevers. (3) IV drug user Is this a current diagnosis for this admission?: Yes Plan: This is likely the source of his cellulitis. He states that he did not use on a fairly regular basis. He indicates that he is ready to stop. (4) Opiate withdrawal Plan: The patient had been using IV heroin as well as taking oxycodone periodically as an outpatient. Currently appears to be stable on current regimen. (5) Opiate dependence Plan: Patient states that he does not use heroin or use oxycodone on a regular basis however he was having evidence of withdrawal. (6) Hypokalemia Is this a current diagnosis for this admission?: Yes Plan: Repleted and resolved (7) Tobacco dependence Is this a current diagnosis for this admission?: Yes Plan: Currently has a nicotine patch in place and is doing quite well. (8) Anemia Plan: Patient had a precipitous drop in hemoglobin likely due to hemodilution as he received quite a bit of IV fluids at the time of admission. His hemoglobin is stable. - Time Time Spent with patient: 25-34 minutes - Inpatient Certification Medical Necessity: Need For IV Fluids - Inpatient hospitalization remains necessary for parenteral antibiotics. The patient is quite slow to improve and is still running fevers. Timing of disposition will be determined by his clinical course.
[2017-03-08] MEDS: LOPERAMIDE HCL 2 MG CAPSULE PO PRN (12:24)
[2017-03-08] MEDS: LINEZOLID 300 ML IV SCH (22:02)
[2017-03-09 05:45] LABS: ALANINE AMINOTRANSFERASE 54 U/L (21-72); ALBUMIN 2.9 g/dL (3.5-5.0); ALKALINE PHOSPHATASE 53 U/L (38-126); ANION GAP 9 (5-19); ASPARTATE AMINO TRANSFERASE 39 U/L (17-59); BILIRUBIN,DIRECT 0.3 mg/dL (0.0-0.4); BILIRUBIN,TOTAL 0.4 mg/dL (0.2-1.3); BLOOD UREA NITROGEN 10 mg/dL (7-20); CALCIUM 8.2 mg/dL (8.4-10.2); CARBON DIOXIDE 25 mmol/L (22-30); CHLORIDE 109 mmol/L (98-107); CREATININE RESULT 1.54 mg/dL (0.52-1.25); GLUCOSE 107 mg/dL (75-110); MAGNESIUM 2.3 mg/dL (1.6-2.3); POTASSIUM 3.5 mmol/L (3.6-5.0); SODIUM 142.5 mmol/L (137-145)
[2017-03-09] MEDS: PIPERACILLIN SODIUM/TAZOBACTAM 4.5 GM in NORMAL SALINE 100 ML IV SCH ×4 (06:31→23:55)
[2017-03-09] MEDS: DIAZEPAM 5 MG TABLET PO SCH ×4 (06:31→23:55)
[2017-03-09] MEDS: OXYCODONE HCL IR 5 MG TABLET PO PRN ×3 (06:36→20:38)
[2017-03-09 08:05] LABS: HEMATOCRIT 31.4 % (37.9-51.0); RED CELL DISTRIBUTION WIDTH 14.1 % (11.5-14.0)
[2017-03-09 08:12] LABS: HEMOGLOBIN 10.8 g/dL (13.5-17.0); MEAN CORPUSCULAR HEMOGLOBIN 29.7 pg (27.0-33.4); MEAN CORPUSCULAR HGB CONC 34.3 g/dL (32.0-36.0); MEAN CORPUSCULAR VOLUME 87 fl (80-97); RED BLOOD COUNT 3.63 10^6/uL (4.35-5.55); WHITE BLOOD COUNT 4.3 10^3/uL (4.0-10.5)
--- NOTE | 2017-03-09 09:19 | PDOC PROGRESS REPORT ---
Subjective Progress Note for:: 03/09/17 Subjective:: The patient is a pleasant but unfortunate 36-year-old gentleman who was admitted with cellulitis of his right arm likely due to IV drug use. The patient has a history of using IV heroin but currently is in the process of trying to quit. His cellulitis is been quite slow to improve. Yesterday he was changed to IV Zyvox as his erythema was actually spreading. He has had a CT scan of his right upper extremity which revealed no underlying abscess or joint infection. Hepatitis panel obtained at the time of admission is positive for hepatitis C which is a new diagnosis for this patient. I did spend quite some time today discussing this new diagnosis with him. He states that he is quite motivated to quit using drugs. We did discuss that he would need to be clean and sober for a period of time before he would be considered a candidate for treatment. Again he states that he is quite motivated. When I saw the patient he states that he is still having quite a bit of pain in his arm. He states the swelling may be a little improved but he does continue to feel as if the erythema is spreading. He states that he has had no fever chills overnight. No chest pain, shortness of breath or heart palpitations. No nausea, vomiting or diarrhea. He is tolerating his diet. No dysuria, frequency or hematuria. Physical Exam Vital Signs: Temp Pulse Resp BP Pulse Ox 97.6 F 70 12 121/77 100 03/09/17 07:34 03/09/17 07:34 03/09/17 07:34 03/09/17 07:34 03/09/17 07:34 Intake & Output 03/08/17 03/09/17 03/10/17 06:59 06:59 06:59 Intake Total 2786 2304 Output Total 400 Balance 2386 2304 Weight 78 kg General appearance: PRESENT: no acute distress, well-developed, well-nourished Head exam: PRESENT: atraumatic, normocephalic Mouth exam: PRESENT: moist, tongue midline Respiratory exam: PRESENT: clear to auscultation belle. ABSENT: rales, rhonchi, wheezes Cardiovascular exam: PRESENT: RRR. ABSENT: diastolic murmur, rubs, systolic murmur GI/Abdominal exam: PRESENT: normal bowel sounds, soft. ABSENT: distended, guarding, mass, organolmegaly, rebound, tenderness Rectal exam: PRESENT: deferred Extremities exam: PRESENT: full ROM. ABSENT: calf tenderness, clubbing, pedal edema Neurological exam: PRESENT: alert, awake, oriented to person, oriented to place , oriented to time, oriented to situation, CN II-XII grossly intact. ABSENT: motor sensory deficit Skin exam: PRESENT: dry - Right upper extremity has continued erythema. It actually has spread since yesterday however it is not quite as angry as it was yesterday., warm, other Results Laboratory Results: 03/09/17 05:13 03/09/17 05:13 03/08/17 03/09/17 03/09/17 08:38 05:13 05:13 WBC 6.1 4.3 RBC 3.58 L 3.63 L Hgb 10.8 L 10.8 L Hct 31.4 L 31.4 L MCV 88 87 MCH 30.3 29.7 MCHC 34.6 34.3 RDW 14.0 14.1 H Plt Count 86 L 89 L Sodium 142.5 Potassium 3.5 L Chloride 109 H Carbon Dioxide 25 Anion Gap 9 BUN 10 Creatinine 1.54 H Est GFR ( Amer) > 60 Est GFR (Non-Af Amer) 52 L Glucose 107 Calcium 8.2 L Magnesium 2.3 Total Bilirubin 0.4 AST 39 ALT 54 Alkaline Phosphatase 53 Total Protein 6.0 L Albumin 2.9 L Impressions: Chest X-Ray 03/04/17 17:12 IMPRESSION: NO SIGNIFICANT RADIOGRAPHIC FINDING IN THE CHEST. Extremity Ultrasound 03/04/17 19:05 IMPRESSION: Soft tissue edema is identified without a discrete mass or fluid collection being identified. Venous Doppler Study 03/04/17 19:06 IMPRESSION: NO EVIDENCE DVT OR SVT IN THE RIGHT ARM. Upper Extremity CT 03/07/17 00:00 IMPRESSION: Persistent superficial cellulitis without well-circumscribed abscess. No elbow joint effusion. Assessment & Plan - Diagnosis (1) Sepsis Qualifiers: Sepsis type: sepsis due to unspecified organism Qualified Code(s): A41.9 - Sepsis, unspecified organism Is this a current diagnosis for this admission?: Yes Plan: Present on admission manifested by high fever of 102.7, tachycardia, elevated lactic acid level, leukocytosis and thrombocytopenia. Patient sepsis symptoms are improving. His sepsis is secondary to his underlying cellulitis. (2) Cellulitis of upper extremity Qualifiers: Laterality: right Qualified Code(s): L03.113 - Cellulitis of right upper limb Is this a current diagnosis for this admission?: Yes Plan: He had a CT scan of his right upper extremity which fortunately revealed no evidence of septic joint or underlying abscess. Unfortunately quite slow to improve. We have no cultures to guide therapy. Yesterday his IV vancomycin was stopped and he was started on IV Zyvox. He will continue with IV Zosyn. He has not run a fever for the past 48 hours which is good. This is the second day of treatment with IV Zyvox and will see if he makes any significant improvement overnight. (3) Hepatitis C infection Plan: This is a new diagnosis for the patient. He will need to follow-up with gastroenterology as an outpatient. He does not have a primary care provider or insurance. [facility] and they can arrange outpatient follow-up. His levels will need to be monitored for the next 6 months. He will need to abstain from alcohol and drugs to be considered a candidate for treatment. All of this is been discussed with the patient and he seems to be quite motivated. (4) IV drug user Is this a current diagnosis for this admission?: Yes Plan: This is likely the source of his cellulitis. He states that he did not use on a regular basis and at this point plans to quit entirely. He indicates that he is ready to stop, especially in light of his new hepatitis C diagnosis.. (5) Opiate withdrawal Plan: The patient had been using IV heroin as well as taking oxycodone periodically as an outpatient. Currently appears to be stable on current regimen. (6) Opiate dependence Plan: Patient states that he does not use heroin or use oxycodone on a regular basis however he was having evidence of withdrawal. He seems to be improving (7) Hypokalemia Is this a current diagnosis for this admission?: Yes Plan: This will be repleted today and will recheck a level in the morning. (8) Tobacco dependence Is this a current diagnosis for this admission?: Yes Plan: Currently has a nicotine patch in place and is doing quite well. (9) Anemia Plan: Patient had a precipitous drop in hemoglobin likely due to hemodilution as he received quite a bit of IV fluids at the time of admission. His hemoglobin is stable. - Time Time Spent with patient: 25-34 minutes - Inpatient Certification Medical Necessity: Need for IV Antibiotics - Inpatient hospitalization remains necessary. The patient has cellulitis that is quite slow to improve. He is requiring parenteral therapies. Timing of disposition will be determined by his clinical course.
[2017-03-09] MEDS ORDERED: POTASSIUM CHLORIDE 10 MEQ TABLET.SA PO ONE (10:00)
[2017-03-09] MEDS: LACTOBACILLUS ACIDOPHILUS 250 MG TAB PO SCH ×2 (10:09→17:25)
[2017-03-09] MEDS: DOCUSATE SODIUM 100 MG CAPSULE PO SCH ×2 (10:10→17:13)
[2017-03-09] MEDS: NICOTINE 21 MG/24 HR PATCH.TD24 TD SCH (10:10)
[2017-03-09] MEDS: LINEZOLID 300 ML IV SCH ×2 (10:10→21:28)
[2017-03-09] MEDS: KETOROLAC TROMETHAMINE INJ/PF 30 MG/1 ML SDV IV PRN ×2 (10:50→17:25)
[2017-03-10] MEDS: OXYCODONE HCL IR 5 MG TABLET PO PRN ×3 (04:57→18:39)
[2017-03-10 06:00] LABS: ANION GAP 12 (5-19); BLOOD UREA NITROGEN 11 mg/dL (7-20); CALCIUM 8.4 mg/dL (8.4-10.2); CARBON DIOXIDE 21 mmol/L (22-30); CHLORIDE 111 mmol/L (98-107); CREATININE RESULT 1.39 mg/dL (0.52-1.25); GLUCOSE 86 mg/dL (75-110); MAGNESIUM 2.3 mg/dL (1.6-2.3); POTASSIUM 4.4 mmol/L (3.6-5.0)
[2017-03-10] MEDS: DIAZEPAM 5 MG TABLET PO SCH ×3 (06:36→22:00)
[2017-03-10] MEDS: PIPERACILLIN SODIUM/TAZOBACTAM 4.5 GM in NORMAL SALINE 100 ML IV SCH (06:37)
[2017-03-10] MEDS: DOCUSATE SODIUM 100 MG CAPSULE PO SCH ×2 (10:22→18:40)
--- NOTE | 2017-03-10 10:34 | PDOC PROGRESS REPORT ---
Subjective Progress Note for:: 03/10/17 Subjective:: Patient is seen on morning rounds, he is resting comfortably in bed with family present. He reports that he is no longer running a fever and that his body aches have resolved. He does c/o continued loose stools, primarily in the A.M., associated with diffuse abdominal cramping. He reports three bm's this morning. He denies nausea and vomiting and reports a good appetite. He states that immodium has been beneficial. Pt reports continued right arm erythem, edema, and tenderness with range of motion. He does state that the edema has improved from yesterday. We discussed decreasing his scheduled Valium today. He is agreeable, stating that other than loose stools, he is not experiencing any withdrawal symptoms at present. He has no other questions or concerns. Physical Exam Vital Signs: Temp Pulse Resp BP Pulse Ox 98.6 F 51 L 16 123/78 100 03/10/17 05:01 03/10/17 05:01 03/10/17 05:01 03/10/17 05:01 03/10/17 05:01 Intake & Output 03/09/17 03/10/17 03/11/17 06:59 06:59 06:59 Intake Total 2304 2140 Balance 2304 2140 Weight 78 kg General appearance: PRESENT: no acute distress, well-developed, well-nourished Head exam: PRESENT: atraumatic, normocephalic Eye exam: PRESENT: conjunctiva pink, EOMI, PERRLA. ABSENT: scleral icterus Ear exam: PRESENT: normal external ear exam Mouth exam: PRESENT: moist, tongue midline Neck exam: ABSENT: carotid bruit, JVD, lymphadenopathy, thyromegaly Respiratory exam: PRESENT: clear to auscultation belle. ABSENT: rales, rhonchi, wheezes Cardiovascular exam: PRESENT: RRR. ABSENT: diastolic murmur, rubs, systolic murmur Pulses: PRESENT: normal dorsalis pedis pul Vascular exam: PRESENT: normal capillary refill GI/Abdominal exam: PRESENT: normal bowel sounds, soft. ABSENT: distended, guarding, mass, organolmegaly, rebound, tenderness Rectal exam: PRESENT: deferred Extremities exam: PRESENT: full ROM, tenderness - Rt elbow w/ extension. ABSENT : calf tenderness, clubbing, pedal edema Neurological exam: PRESENT: alert, awake, oriented to person, oriented to place , oriented to time, oriented to situation, CN II-XII grossly intact. ABSENT: motor sensory deficit Psychiatric exam: PRESENT: appropriate affect, normal mood. ABSENT: homicidal ideation, suicidal ideation Skin exam: PRESENT: dry, erythema - Rt elbow/forearm with erythema and edema, intact, warm. ABSENT: cyanosis, rash Results Laboratory Results: 03/09/17 05:13 03/10/17 04:47 03/10/17 04:47 Sodium 144.0 Potassium 4.4 Chloride 111 H Carbon Dioxide 21 L Anion Gap 12 BUN 11 Creatinine 1.39 H Est GFR ( Amer) > 60 Est GFR (Non-Af Amer) 58 L Glucose 86 Calcium 8.4 Magnesium 2.3 Impressions: Chest X-Ray 03/04/17 17:12 IMPRESSION: NO SIGNIFICANT RADIOGRAPHIC FINDING IN THE CHEST. Extremity Ultrasound 03/04/17 19:05 IMPRESSION: Soft tissue edema is identified without a discrete mass or fluid collection being identified. Venous Doppler Study 03/04/17 19:06 IMPRESSION: NO EVIDENCE DVT OR SVT IN THE RIGHT ARM. Upper Extremity CT 03/07/17 00:00 IMPRESSION: Persistent superficial cellulitis without well-circumscribed abscess. No elbow joint effusion. Assessment & Plan - Diagnosis (1) Acute kidney injury Is this a current diagnosis for this admission?: Yes Plan: Creatinine elevated from baseline of 0.7; improved from yesterday (0.71-->1.54-- >1.39). Possibly r/t nephrotoxic medications as pt was receiving vancomycin and regular IV toradol. Medications have since been discontinued and creatinine is trending down. Will continue to monitor. (2) Cellulitis of upper extremity Qualifiers: Laterality: right Qualified Code(s): L03.113 - Cellulitis of right upper limb Is this a current diagnosis for this admission?: Yes Plan: Secondary to IV drug use. Doppler study negative for DVT/SVT and extremity ultrasound does not show evidence of a abscess. CT scan of RUE did not reveal evidence of septic joint or underlying abscess. He did worsen while on Vancomycin and so was changed to Zyvox. Per pt and nursing, his edema has improved significantly and the erythema is showing slight improvements. Blood cultures (final): No growth 1- Zyvox; consider transition to p.o. if continued improvements 2- Tylenol and Toradol prn pain 3- Keep extremity elevated 4- Oxycodone 5mg q 6 hours prn (3) Sepsis Qualifiers: Sepsis type: sepsis due to unspecified organism Qualified Code(s): A41.9 - Sepsis, unspecified organism Is this a current diagnosis for this admission?: Yes Plan: Secondary to cellulitis of the right forearm; pt with high fever of 102.7, tachycardia, elevated lactic acid level, leukocytosis and thrombocytopenia upon admission. Pt received fluid volume resuscitation and empiric antibiotics initiated. His sepsis symptoms and thrombocytopenia are improving and leukocytosis has resolved. As above. (4) Withdrawal complaint Is this a current diagnosis for this admission?: Yes Plan: Patient with IV heroin use, intermittent oxycodone and Xanax use, and daily EtOH. Symptoms are improved with scheduled Valium; he has not required prn ativan. Discussed weaning of Valium today and pt is agreeable. 1- Valium 5mg q8 hours scheduled 2- prn Ativan for withdrawal symptoms (5) Tobacco dependence Is this a current diagnosis for this admission?: Yes Plan: Tobacco cessation discussed. Will provide nicotine replacement therapy. (6) IV drug user Is this a current diagnosis for this admission?: Yes Plan: Episodic use. Now with new dx of Hepaits C. Pt reports that he is interested in staying off of heroin; will ask Discharge Planning to provide pt with area resources for substance abuse rehab/support groups. (7) Hypokalemia Is this a current diagnosis for this admission?: Yes Plan: Replete. Will monitor. (8) Hepatitis C infection Qualifiers: Viral hepatitis chronicity: unspecified Hepatic coma status: without hepatic coma Qualified Code(s): B19.20 - Unspecified viral hepatitis C without hepatic coma Is this a current diagnosis for this admission?: Yes Plan: This is a new diagnosis for the patient. He will need t follow-up with gastroenterology as an outpatient. Pt does not have a primary care provider or insurance; will refer to the [facility] to establish care. Pt is aware that to qualify for treatment, he will need to abstain from drugs and alcohol; he seems to be motivated to remain sober. (9) Anemia Is this a current diagnosis for this admission?: Yes Plan: Pt with precipitous drop in hemoglobin (13.7-->10.8) after IVF resuscitation; now stable at 10.8 without active signs of bleeding. Will continue to monitor. - Time Time Spent with patient: 25-34 minutes Medications reviewed and adjusted accordingly: Yes - Inpatient Certification Medical Necessity: Need for IV Antibiotics
[2017-03-10] MEDS: LACTOBACILLUS ACIDOPHILUS 250 MG TAB PO SCH ×2 (10:54→18:39)
[2017-03-10] MEDS: LINEZOLID 300 ML IV SCH ×2 (10:54→21:59)
[2017-03-10] MEDS: NICOTINE 21 MG/24 HR PATCH.TD24 TD SCH (10:55)
[2017-03-11] MEDS: OXYCODONE HCL IR 5 MG TABLET PO PRN ×2 (02:56→09:06)
[2017-03-11] MEDS: ACETAMINOPHEN 325 MG TABLET PO PRN (02:57)
[2017-03-11 04:53] LABS: HEMATOCRIT 31.1 % (37.9-51.0); HEMOGLOBIN 10.8 g/dL (13.5-17.0); HGB HCT DIFFERENCE 1.3; MEAN CORPUSCULAR HEMOGLOBIN 30.4 pg (27.0-33.4); MEAN CORPUSCULAR HGB CONC 34.6 g/dL (32.0-36.0); MEAN CORPUSCULAR VOLUME 88 fl (80-97); RED BLOOD COUNT 3.54 10^6/uL (4.35-5.55); RED CELL DISTRIBUTION WIDTH 14.3 % (11.5-14.0); WHITE BLOOD COUNT 5.2 10^3/uL (4.0-10.5)
[2017-03-11 05:09] LABS: ANION GAP 11 (5-19); BLOOD UREA NITROGEN 10 mg/dL (7-20); CALCIUM 8.1 mg/dL (8.4-10.2); CARBON DIOXIDE 22 mmol/L (22-30); CHLORIDE 109 mmol/L (98-107); CREATININE RESULT 1.32 mg/dL (0.52-1.25); GLUCOSE 177 mg/dL (75-110); SODIUM 141.7 mmol/L (137-145)
[2017-03-11] MEDS: DIAZEPAM 5 MG TABLET PO SCH (06:01)
[2017-03-11] MEDS ORDERED: LORAZEPAM 1 MG TABLET PO PRN (08:12)
[2017-03-11] MEDS ORDERED: LACTOBACILLUS ACIDOPHILUS 250 MG TAB PO SCH (08:12)
[2017-03-11] MEDS: NICOTINE 21 MG/24 HR PATCH.TD24 TD SCH (09:13)
[2017-03-11] MEDS: DOCUSATE SODIUM 100 MG CAPSULE PO SCH (09:13)
[2017-03-11] MEDS: LINEZOLID 300 ML IV SCH (09:16)
--- NOTE | 2017-03-11 09:23 | DISCHARGE SUMMARY E ---
Discharge Summary NAME: LORIN MURPHY : 1980 AGE: 36Y ADMITTED: 03/04/2017 DISCHARGED: 03/11/2017 CODE STATUS: FULL CODE. PRIMARY CARE PROVIDER: [facility] DISCHARGE DIAGNOSES INCLUDE: 1. Right upper extremity cellulitis. 2. Sepsis secondary to #1, which has resolved. 3. IV heroin use. 4. Acute kidney injury, which is improving. 5. Tobacco dependency, continuous. 6. Withdrawal diarrhea, which has improved. 7. Positive hep C antibodies. DISCHARGE MEDICATIONS INCLUDE: 1. Clindamycin 300 mg p.o. every 6 hours, 40 capsules with 0 refills. 2. Tylenol 650 mg p.o. every 4 hours p.r.n., 30 tablets, 0 refills. 3. Align 1 capsule p.o. b.i.d., 30 capsules with 0 refills. DIET: As tolerated. ACTIVITY: As tolerated. DIAGNOSTICS: Lab values are as follows: Hematology obtained on 03/11/2017: WBC is 5.2, hemoglobin is 10.8, hematocrit is 31.1, platelet count is 123,000. Coagulation obtained on 03/04/2017: PT is 30.6, INR is 0.97. Blood gas obtained on 03/04/2017: Bicarb is 22.4, PCO2 is 31, pH is 7.48. Chemistry obtained on 03/11/2017: Sodium is 141, potassium 4.0, chloride is 109, carbon dioxide 22, BUN 10, creatinine is 0.32, glucose 177, lactic acid was 1.1, calcium 8.1, magnesium 2.3, bilirubin 0.3, AST 39, ALT 64, alk phos 53, total protein 6.0, albumin 2.9. Urinalysis obtained on 03/05/2017: Color yellow, appearance clear, pH is 5.0, specific gravity is 1.033, protein 30, glucose negative, ketones negative, occult blood negative, nitrite negative, bilirubin negative, urobilinogen is 4.0, leukocyte esterase is negative, WBCs 1, RBCs 6, mucus rare, ascorbic acid is negative. Toxicology obtained on 03/06/2017: Vancomycin trough is 7.4. Serologies obtained on 03/05/2017: Hepatitis C antibodies are positive. HIV antibodies are negative. Microbiology: Blood cultures obtained on 03/14/2017 revealed no growth. Urine culture obtained on 03/05/2017 reveals no growth. Chest x-ray obtained on 03/04/2017 reveals no significant radiographic finding of the chest. Extremity ultrasound obtained on 03/04/2017 reveals soft tissue edema is identified without a discrete mass or fluid collection being identified. Venous Doppler obtained on 03/04/2017 reveals no evidence of DVT or SVT in either arm. Upper extremity CT obtained on 03/07/2017 reveals persistent superficial cellulitis without a well-circumscribed abscess. There is no elbow or joint effusion. EKG obtained on 03/04/2017 reveals sinus tachycardia. PHYSICAL EXAMINATION: GENERAL: On examination, the patient is a well-developed, well-nourished appearing 36-year-old male who is awake, alert, and oriented to person, place, time, and situation. He is verbal, conversational, does not appear to be in any acute distress. VITAL SIGNS: As follows: Temperature is 98.7, pulse 56, respirations 16, blood pressure 120/70, oxygen saturation is 100% on room air. SKIN: Warm and dry. No rash, not diaphoretic. HEENT: Pupils equal, round, and reactive to light and accommodation. Conjunctivae pink. No JVP. CARDIOVASCULAR: Heart is regular. There is no murmur or rub. CHEST: Clear, symmetrical, unlabored. ABDOMEN: Soft, nontender, nondistended. BACK: No CVA tenderness or sacral edema. EXTREMITIES: No clubbing, cyanosis or pitting edema. The patient does have an area of cellulitis of the right forearm area. This appears to have receded significantly, unable to appreciate any area of abscess. It is not tender to the touch and overall appears much improved in comparison to previous documentation. PSYCHIATRIC: Appropriate affect. Pleasant mood. HISTORY OF PRESENT ILLNESS: The patient is a 36-year-old male with a past medical history of IV drug use and tobacco dependency. The patient presented to the emergency department with a chief complaint of right forearm pain. According to documentation, the patient had been in his usual state of health until approximately 72 hours prior to presentation when he stated he missed a vein while attempting to inject heroin, resulting in pain and swelling of his right forearm. The patient had also developed a circumferential erythema, myalgia and fever, prompting him to seek evaluation in the emergency department where he was found to be in a septic state. The patient was started on vancomycin and Zosyn and was referred to the hospitalist for admission and management. The patient admits to previous episodes of this which resulted in MSSA abscess which required debridement and hospitalization in 2011. Therefore, the patient was referred to the hospitalist for admission and management. HOSPITAL COURSE: The patient was admitted to [facility]. The patient was aggressively hydrated and was continued on broad-spectrum antibiotic coverage. The patient was on scheduled Toradol as well as vancomycin. The patient's creatinine did bump to 1.54; however, it is on a downtrend trend to 1.32 with hydration. Nephrotoxic medications were discontinued. The patient was transitioned over to Zyvox. The patient did develop abdominal complaints of withdrawal, including diarrhea and abdominal tenderness; however, he was added probiotic therapy and the patient was scheduled on Valium and p.r.n. Ativan and oxy for pain. The patient's symptoms overall appear much improved. The patient has no appreciable abscess and redness has receded from the elbow. The patient is safe to be discharged on oral antibiotics and will follow up at [facility]. The patient has been given resources on substance abuse in this area, and the patient nor family voices any concerns with this plan. At no time during the patient's stay did he complain of any paresthesias or weakness of the right arm. The patient has complete range of motion with this arm during examination and no tenderness or pain at any area. DISCHARGE PLANNING: The patient is to follow up with the [facility] within the next week for hospital followup. Time spent on this discharge, including assessment/plan, physical examination, patient education, family meeting, review of previous and current medical records is 35 minutes. DICTATING PHYSICIAN: LORIN DE LA CRUZ NP [id number] PHY#: [id number] ID: [id number] JOB#: [id number] ACCT: [id number] cc:ALINA GREGG M.D. LORIN DE LA CRUZ NP >
[2017-03-11 10:44] VITALS: BP 116/61
== END 2017-03-11 11:18 | disposition home or self-care (01) | DRG 872 ==
LOC: ER 16:49 → UNDOADMIN 19:38 → EH 19:38 → 3N 03-05 02:45
PROVIDERS: ADMIT Internal Medicine; ATTEND Internal Medicine
DX: A41.9 Sepsis, unspecified organism (principal); L03.113 Cellulitis of right upper limb; F11.23 Opioid dependence with withdrawal; N17.9 Acute kidney failure, unspecified; M79.89 Other specified soft tissue disorders; I48.2 Chronic atrial fibrillation; R00.0 Tachycardia, unspecified; F17.210 Nicotine dependence, cigarettes, uncomplicated; E87.6 Hypokalemia; D64.9 Anemia, unspecified; B19.20 Unspecified viral hepatitis C without hepatic coma
CPT/HCPCS: 36415; 71020; 76882; 80048; 80053; 80076; 80202; 81001; 82565; 82803; 83605; 83735; 85025; 85027; 85610; 86701; 86803; 86804; 87040; 87086; 93005; 93010; 93971; 96361; 96365; 99285; J1644; J1885; J2020; J2543; J3370; J7030; J7060